=== PATIENT | male | born 1940 | race Caucasian/White ===

== ENCOUNTER 2021-04-17 10:15 | Outpatient (CLI) | payer SELFPAY | END 2021-04-17 10:16 | disposition EMS.NT | LOC: EMS 10:15 | DX: E16.2 Hypoglycemia, unspecified (principal) ==

== ENCOUNTER 2021-09-19 12:00 | Outpatient (CLI) | payer MEDICARE | END 2021-09-19 12:01 | disposition home or self-care (01) | LOC: LAB.S 12:00 | PROVIDERS: ATTEND Family Medicine | DX: Z51.81 Encounter for therapeutic drug level monitoring (principal); Z79.01 Long term (current) use of anticoagulants | CPT/HCPCS: 36416; 85610 ==

== ENCOUNTER 2021-10-26 14:07 | Outpatient (CLI) | payer MEDICARE | END 2021-10-26 14:08 | disposition home or self-care (01) | LOC: LAB.S 14:07 | PROVIDERS: ATTEND Family Medicine | DX: Z51.81 Encounter for therapeutic drug level monitoring (principal); Z79.01 Long term (current) use of anticoagulants | CPT/HCPCS: 36416; 85610 ==

== ENCOUNTER 2021-11-07 13:01 | Outpatient (CLI) | payer MEDICARE | END 2021-11-07 13:02 | disposition home or self-care (01) | LOC: LAB.S 13:01 | PROVIDERS: ATTEND Family Medicine | DX: Z51.81 Encounter for therapeutic drug level monitoring (principal); Z79.01 Long term (current) use of anticoagulants | CPT/HCPCS: 36416; 85610 ==

== ENCOUNTER 2021-12-14 13:24 | Outpatient (CLI) | payer MEDICARE | END 2021-12-14 13:25 | disposition home or self-care (01) | LOC: LAB.S 13:24 | PROVIDERS: ATTEND Family Medicine | DX: I48.91 Unspecified atrial fibrillation (principal) | CPT/HCPCS: 36416; 85610 ==

== ENCOUNTER 2022-01-12 10:39 | Outpatient (CLI) | payer MEDICARE | END 2022-01-12 10:40 | disposition home or self-care (01) | LOC: LAB.S 10:39 | PROVIDERS: ATTEND Family Medicine | DX: Z51.81 Encounter for therapeutic drug level monitoring (principal); Z79.01 Long term (current) use of anticoagulants | CPT/HCPCS: 36416; 85610 ==

== ENCOUNTER 2022-03-28 10:09 | Outpatient (CLI) | payer MEDICARE | END 2022-03-28 10:10 | disposition home or self-care (01) | LOC: LAB.S 10:09 | PROVIDERS: ATTEND Family Medicine | DX: Z51.81 Encounter for therapeutic drug level monitoring (principal); Z79.01 Long term (current) use of anticoagulants | CPT/HCPCS: 36416; 85610 ==

== ENCOUNTER 2022-04-27 13:36 | Outpatient (CLI) | payer MEDICARE | END 2022-04-27 13:37 | disposition home or self-care (01) | LOC: LAB.S 13:36 | PROVIDERS: ATTEND Family Medicine | DX: Z51.81 Encounter for therapeutic drug level monitoring (principal); Z79.01 Long term (current) use of anticoagulants | CPT/HCPCS: 36416; 85610 ==

== ENCOUNTER 2022-04-30 11:45 | Outpatient (CLI) | payer MEDICARE | END 2022-04-30 11:46 | disposition home or self-care (01) | LOC: LAB.S 11:45 | PROVIDERS: ATTEND Family Medicine | DX: Z51.81 Encounter for therapeutic drug level monitoring (principal); Z79.01 Long term (current) use of anticoagulants | CPT/HCPCS: 36416; 85610 ==

== ENCOUNTER 2022-05-14 14:20 | Outpatient (CLI) | payer MEDICARE | END 2022-05-14 14:21 | disposition home or self-care (01) | LOC: LAB.S 14:20 | PROVIDERS: ATTEND Family Medicine | DX: Z51.81 Encounter for therapeutic drug level monitoring (principal); Z79.01 Long term (current) use of anticoagulants | CPT/HCPCS: 36416; 85610 ==

== ENCOUNTER 2022-05-28 12:43 | Outpatient (CLI) | payer MEDICARE | END 2022-05-28 12:44 | disposition home or self-care (01) | LOC: LAB.S 12:43 | PROVIDERS: ATTEND Family Medicine | DX: Z51.81 Encounter for therapeutic drug level monitoring (principal); Z79.01 Long term (current) use of anticoagulants | CPT/HCPCS: 36416; 85610 ==

== ENCOUNTER 2022-06-11 11:47 | Outpatient (CLI) | payer MEDICARE | END 2022-06-11 11:48 | disposition home or self-care (01) | LOC: LAB.S 11:47 | PROVIDERS: ATTEND Family Medicine | DX: Z51.81 Encounter for therapeutic drug level monitoring (principal); Z79.01 Long term (current) use of anticoagulants | CPT/HCPCS: 36416; 85610 ==

== ENCOUNTER 2022-06-19 14:06 | Outpatient (CLI) | payer MEDICARE ==
[2022-06-19 20:19] LABS: HCT - HEMATOCRIT 36.9 % (42.0-52.0); HGB - HEMOGLOBIN 11.9 g/dL (14.0-18.0); MEAN CORPUSCULAR HEMOGLOBIN 28.5 pg (27.0-31.0); MEAN CORPUSCULAR HGB CONC 32.2 g/dL (32.0-36.0); MEAN CORPUSCULAR VOLUME 88.3 fL (80.0-94.0); MEAN PLATELET VOLUME 9.7 fL (7.4-11.4); RED BLOOD COUNT 4.18 10^6/uL (4.70-6.10); RED CELL DISTRIBUTION WIDTH 12.5 % (12.0-15.0)
[2022-06-19 20:42] LABS: CREATININE,URINE 123.8 mg/dL; MICROALBUM/CREATININE RATIO,UR 8.9 ug/mg (<30.0); MICROALBUMIN,URINE 1.1 mg/dL (0-300.0)
[2022-06-19 20:49] LABS: ALBUMIN 3.3 g/dL (3.2-5.5); ALBUMIN/GLOBULIN RATIO 0.8 (1.0-2.2); ALKALINE PHOSPHATASE 90 IU/L (42-121); ALT ALANINE AMINOTRANSFERASE 21 IU/L (10-60); AST ASPARTATE AMINOTRANSFERASE 24 IU/L (10-42); BILIRUBIN,TOTAL 0.4 mg/dL (0.2-1.0); BUN - BLOOD UREA NITROGEN 35 mg/dL (6-20); CALCIUM 8.9 mg/dL (8.5-10.3); CARBON DIOXIDE - CO2 28 mmol/L (21-32); CHLORIDE 100 mmol/L (101-111); CHOL/HDL RATIO 4.2 (<5.0); CHOLESTEROL 105 mg/dL; CREATININE 1.8 mg/dL (0.6-1.2); GFR - MDRD 36 (>89); GLUCOSE 105 mg/dL (70-100); HDL CHOLESTEROL 25 mg/dL; LDL CHOLESTEROL,CALCULATED 55 mg/dL; LDL/HDL RATIO 2.2 (<3.6); POTASSIUM 4.6 mmol/L (3.5-5.0); SODIUM 139 mmol/L (135-145); TOTAL PROTEIN 7.2 g/dL (6.7-8.2); TRIGLYCERIDES 125 mg/dL; VLDL CHOLESTEROL 25 mg/dL
[2022-06-19 21:30] LABS: ESTIMATED AVERAGE GLUCOSE 146 mg/dL (70-100); HEMOGLOBIN A1c% 6.7 % (4.27-6.07)
== END 2022-06-19 14:07 | disposition home or self-care (01) ==
LOC: LAB.S 14:06
PROVIDERS: ATTEND Family Medicine
DX: E11.22 Type 2 diabetes mellitus with diabetic chronic kidney disease (principal); N18.32 Chronic kidney disease, stage 3b; Z79.4 Long term (current) use of insulin
CPT/HCPCS: 36415; 80053; 80061; 82043; 82570; 83036; 83721; 85027

== ENCOUNTER 2022-07-21 09:48 | Outpatient (CLI) | payer MEDICARE | END 2022-07-21 09:49 | disposition EMS.NT | LOC: EMS 09:48 | DX: R42 Dizziness and giddiness (principal); R53.83 Other fatigue; S00.03XA Contusion of scalp, initial encounter; W00.0XXA Fall on same level due to ice and snow, initial encounter; Z79.01 Long term (current) use of anticoagulants ==

== ENCOUNTER 2022-07-23 11:36 | Outpatient (CLI) | payer MEDICARE | END 2022-07-23 11:37 | disposition home or self-care (01) | LOC: LAB.S 11:36 | PROVIDERS: ATTEND Family Medicine | DX: Z51.81 Encounter for therapeutic drug level monitoring (principal); Z79.01 Long term (current) use of anticoagulants | CPT/HCPCS: 36416; 85610 ==

== ENCOUNTER 2022-07-27 11:33 | Outpatient (CLI) | payer MEDICARE | END 2022-07-27 11:34 | disposition home or self-care (01) | LOC: LAB.S 11:33 | PROVIDERS: ATTEND Family Medicine | DX: Z51.81 Encounter for therapeutic drug level monitoring (principal); Z79.01 Long term (current) use of anticoagulants | CPT/HCPCS: 36416; 85610 ==

== ENCOUNTER 2022-08-22 12:12 | Outpatient (CLI) | payer MEDICARE | END 2022-08-22 12:13 | disposition home or self-care (01) | LOC: LAB.S 12:12 | PROVIDERS: ATTEND Family Medicine | DX: Z51.81 Encounter for therapeutic drug level monitoring (principal); Z79.01 Long term (current) use of anticoagulants | CPT/HCPCS: 36416; 85610 ==

== ENCOUNTER 2022-08-29 13:23 | Outpatient (CLI) | payer MEDICARE | END 2022-08-29 13:24 | disposition home or self-care (01) | LOC: LAB.S 13:23 | PROVIDERS: ATTEND Family Medicine | DX: Z51.81 Encounter for therapeutic drug level monitoring (principal); Z79.01 Long term (current) use of anticoagulants | CPT/HCPCS: 36416; 85610 ==

== ENCOUNTER 2022-09-06 12:34 | Outpatient (CLI) | payer MEDICARE | END 2022-09-06 12:35 | disposition home or self-care (01) | LOC: LAB.S 12:34 | PROVIDERS: ATTEND Family Medicine | DX: Z51.81 Encounter for therapeutic drug level monitoring (principal); Z79.01 Long term (current) use of anticoagulants | CPT/HCPCS: 36416; 85610 ==

== ENCOUNTER 2022-09-13 03:34 | Outpatient (CLI) | payer MEDICARE | END 2022-09-13 03:35 | disposition critical access hospital (66) | LOC: EMS 03:34 | DX: R07.1 Chest pain on breathing (principal) | CPT/HCPCS: A0425; A0427 ==

== ENCOUNTER 2022-09-13 03:58 | Emergency (ER) | payer MEDICARE ==
--- NOTE | 2022-09-13 04:00 | ED Physician Documentation ---
PD HPI CHEST PAIN - Stated complaint Stated Complaint: CHEST PX - History obtained from History obtained from: Patient, EMS - History of Present Illness Timing - details: Abrupt onset Quality: Sharp Recently seen: Not recently seen - Additional information Additional information: HPI is from patient with some contribution from EMS report. Patient is brought in by ambulance with a chief complaint of pain across his lower anterior chest. The symptoms were of sudden onset at 3 AM this morning waking him from sleep. Patient took 4 baby aspirin (81 mg each for total of 324 mg), and noted improvement after taking this. He then had complete resolution when EMS administered 1 dose of sublingual nitroglycerin. Patient denies shortness of breath on presentation, but says he did have some mild shortness of breath when the pain was at its most pronounced. He does note that there was a mild degree of pleuritic component when he had the pain. He denies history of similar symptoms. Patient's past medical history includes cardiac stent which was placed in 2017. Patient's medications include warfarin; patient does not recall why he is on this mediation. I ask him if he has had a history of blood clots in his legs or his lungs, and he says he does not recall having such a problem. I ask him if he has a history of irregular heart rhythm, atrial fibrillation, "A-fib", and, again, he says these are not familiar diagnoses to him. Review of Systems Constitutional: denies: Fever, Chills, Sweats Cardiac: reports: Chest pain / pressure. denies: Palpitations, Pedal edema, Calf pain Respiratory: reports: Dyspnea. denies: Cough GI: reports: Reviewed and negative PD PAST MEDICAL HISTORY - Past Medical History Past Medical History: Yes Cardiovascular: Hypertension, Coronary artery disease - Past Surgical History Past Surgical History: Yes Cardiovascular: Coronary stent - Present Medications Home Medications: Ambulatory Orders Medication Instructions Recorded Confirmed Aspirin Chewable [[place] 81 mg PO DAILY 09/13/22 09/13/22 Aspirin] Atorvastatin Calcium [Lipitor] 80 mg PO DAILY 09/13/22 09/13/22 Azithromycin [Zithromax] 250 mg PO DAILY #6 tablet 09/13/22 Cefdinir 300 mg PO BID #20 cap 09/13/22 Fluoxetine HCl [Prozac] 40 mg PO BID 09/13/22 09/13/22 Furosemide [Lasix] 20 mg PO QPM 09/13/22 09/13/22 Metoprolol Succinate [Toprol Xl] 25 mg PO DAILY 09/13/22 09/13/22 Omeprazole Magnesium 20 mg PO BID 09/13/22 09/13/22 Warfarin [Coumadin] 2.5 mg PO DAILY 09/13/22 09/13/22 - Allergies Allergies/Adverse Reactions: Allergies Allergy/AdvReac Type Severity Reaction Status Date / Time No Known Drug Allergies Allergy Verified 09/13/22 04:24 PD ED PE NORMAL - Vitals Vital signs reviewed: Yes - General General: Alert and oriented X 3, No acute distress, Well developed/nourished - HEENT HEENT: Moist mucous membranes - Neck Neck: Supple, no meningeal sign - Cardiac Cardiac: RRR, No murmur, No gallop, No rub - Respiratory Respiratory: No respiratory distress, Clear bilaterally - Abdomen Abdomen: Soft, Non tender, Non distended - Derm Derm: Normal color, Warm and dry - Extremities Extremities: No edema - Neuro Neuro: Alert and oriented X 3 Results - Vitals Vitals: Oxygen O2 Source Room air - EKG (time done) No standard instances Rate: Rate (enter#) (70) Rhythm: NSR Intervals: LBBB - Labs Labs: Laboratory Tests 09/13/22 09/13/22 09/13/22 04:14 04:14 04:14 WBC 9.1 RBC 3.72 L Hgb 10.3 L Hct 33.6 L MCV 90.3 MCH 27.7 MCHC 30.7 L RDW 15.1 H Plt Count 178 MPV 9.9 Neut # (Auto) 6.9 H Lymph # (Auto) 0.8 L Aurora # (Auto) 1.0 Eos # (Auto) 0.4 Baso # (Auto) 0.0 Absolute Nucleated RBC 0.00 Nucleated RBC % 0.0 PT 18.7 H INR 1.7 H APTT 35.8 H Sodium 138 Potassium 4.3 Chloride 102 Carbon Dioxide 25 Anion Gap 11.0 BUN 37 H Creatinine 1.8 H Estimated GFR (MDRD) 36 L Glucose 173 H Calcium 8.5 Total Bilirubin 0.6 AST 23 ALT 20 Alkaline Phosphatase 65 Troponin I High Sens Total Protein 7.0 Albumin 3.4 Globulin 3.6 Albumin/Globulin Ratio 0.9 L Lipase 24 Nasal Adenovirus (PCR) Nasal B. parapertussis DNA (PCR) Nasal Coronavir 229E PCR Nasal Coronavir HKU1 PCR Nasal Coronavir NL63 PCR Nasal Coronavir OC43 PCR Nasal Enterovir/Rhinovir PCR Nasal Influenza B PCR Nasal Influenza A PCR Nasal Parainfluen 1 PCR Nasal Parainfluen 2 PCR Nasal Parainfluen 3 PCR Nasal Parainfluen 4 PCR Nasal RSV (PCR) Nasal B.pertussis DNA PCR Nasal C.pneumoniae (PCR) Dion Human Metapneumo PCR Nasal M.pneumoniae (PCR) Nasal SARS-CoV-2 (PCR) 09/13/22 09/13/22 09/13/22 04:14 09:13 09:35 WBC RBC Hgb Hct MCV MCH MCHC RDW Plt Count MPV Neut # (Auto) Lymph # (Auto) Aurora # (Auto) Eos # (Auto) Baso # (Auto) Absolute Nucleated RBC Nucleated RBC % PT INR APTT Sodium Potassium Chloride Carbon Dioxide Anion Gap BUN Creatinine Estimated GFR (MDRD) Glucose Calcium Total Bilirubin AST ALT Alkaline Phosphatase Troponin I High Sens 9.2 8.1 Total Protein Albumin Globulin Albumin/Globulin Ratio Lipase Nasal Adenovirus (PCR) NOT DETECTED Nasal B. parapertussis DNA (PCR) NOT DETECTED Nasal Coronavir 229E PCR NOT DETECTED Nasal Coronavir HKU1 PCR NOT DETECTED Nasal Coronavir NL63 PCR NOT DETECTED Nasal Coronavir OC43 PCR NOT DETECTED Nasal Enterovir/Rhinovir PCR NOT DETECTED Nasal Influenza B PCR NOT DETECTED Nasal Influenza A PCR NOT DETECTED Nasal Parainfluen 1 PCR NOT DETECTED Nasal Parainfluen 2 PCR NOT DETECTED Nasal Parainfluen 3 PCR NOT DETECTED Nasal Parainfluen 4 PCR NOT DETECTED Nasal RSV (PCR) NOT DETECTED Nasal B.pertussis DNA PCR NOT DETECTED Nasal C.pneumoniae (PCR) NOT DETECTED Dion Human Metapneumo PCR NOT DETECTED Nasal M.pneumoniae (PCR) NOT DETECTED Nasal SARS-CoV-2 (PCR) NOT DETECTED - Rads (name of study) chest xray Radiology: Prelim report reviewed, See rad report PD Medical Decision Making - ED course Complexity details: reviewed results, re-evaluated patient, considered differential, d/w patient ED course: Patient is brought in by ambulance for chest pain that resolved prior to arrival (patient took 324 mg of aspirin and had significant improvement with this, and subsequent resolution after 1 sublingual nitroglycerin administered by EMS). There are no concerning findings on the CBC (mild anemia with hemoglobin of 10.3 is noted), your abdominal panel. High-sensitivity troponin is within a normal range. Chest x-ray shows mild left lower lobe atelectasis. Patient is on warfarin, INR is 1.7. Patient indicates to me that the target therapeutic range that he was told is 2.5. His EKG shows a left bundle branch block and appears to be a sinus rhythm with PACs, although I also note occasional irregularly irregular appearance during cardiac monitoring in the ER, and thus I suspect the warfarin is most likely due to chronic/paroxysmal atrial fibrillation. On reevaluation, I discussed the test results with the patient. Unfortunately, at the time of the reevaluation, he is reporting his pain has returned. Thus, a repeat troponin is ordered, and CTA of the chest is also ordered given the pleuritic component of his chest discomfort). The reevaluation and these tests occurred at the end of my shift, and thus the care of this patient is turned over to the oncoming emergency department physician (Dr. Tyler) pending the results and subsequent reevaluation. Departure - Departure Disposition: 01 Home, Self Care Clinical Impression: Chest pain Qualifiers: Chest pain type: chest pain on breathing Qualified Code(s): R07.1 - Chest pain on breathing Pneumonia Qualifiers: Pneumonia type: due to unspecified organism Laterality: left Lung location: lower lobe of lung Qualified Code(s): J18.9 - Pneumonia, unspecified organism Condition: Stable Instructions: ED Chest Pain Pleurisy, ED Pneumonia Adult Follow-Up: Aleksandr Vicente MD [Physician No Access] - Prescriptions: Cefdinir 300 mg PO BID #20 cap Azithromycin [Zithromax] 250 mg PO DAILY #6 tablet Comments: Tin, today it looks like your pain in your chest is related to a pneumonia. I have E scribed the antibiotics to the [facility] in [place]. The medications were given today are good for 24 hours and you will not need to take these medicines today. duplex trimmer the medication at the pharmacy and begin it tomorrow. Because you are on antibiotic you will need to have your INR rechecked in about 3 to 5 days. For the pain take the oxycodone you have at home. Discharge Date/Time: 09/13/22 13:42
[2022-09-13] MEDS ORDERED: SODIUM CHLORIDE 0.9% 1,000 ML IV STA (04:10)
[2022-09-13 04:24] LABS: BASOPHILS % (AUTO) 0.2 %; EOSINOPHILS # (AUTO) 0.4 10^3/uL (0.0-0.7); EOSINOPHILS % (AUTO) 4.3 %; HCT - HEMATOCRIT 33.6 % (42.0-52.0); HGB - HEMOGLOBIN 10.3 g/dL (14.0-18.0); LYMPHOCYTES # (AUTO) 0.8 10^3/uL (1.5-3.5); LYMPHOCYTES % (AUTO) 8.8 %; MEAN CORPUSCULAR HEMOGLOBIN 27.7 pg (27.0-31.0); MEAN CORPUSCULAR HGB CONC 30.7 g/dL (32.0-36.0); MEAN CORPUSCULAR VOLUME 90.3 fL (80.0-94.0); MEAN PLATELET VOLUME 9.9 fL (7.4-11.4); MONOCYTES % (AUTO) 10.5 %; NEUTROPHILS # (AUTO) 6.9 10^3/uL (1.5-6.6); NEUTROPHILS % (AUTO) 76.1 %; PLT - PLATELET COUNT 178 10^3/uL (130-450); RED BLOOD COUNT 3.72 10^6/uL (4.70-6.10); RED CELL DISTRIBUTION WIDTH 15.1 % (12.0-15.0); WHITE BLOOD COUNT 9.1 x10^3/uL (4.8-10.8)
[2022-09-13 04:30] LABS: INR 1.7 (0.8-1.2); PT - PROTHROMBIN TIME 18.7 secs (9.9-12.6)
[2022-09-13 04:37] LABS: PARTIAL THROMBOPLASTIN TIME 35.8 secs (24.9-33.3)
[2022-09-13 04:38] LABS: ALBUMIN 3.4 g/dL (3.2-5.5); ALBUMIN/GLOBULIN RATIO 0.9 (1.0-2.2); BILIRUBIN,TOTAL 0.6 mg/dL (0.2-1.0); CALCIUM 8.5 mg/dL (8.5-10.3); CREATININE 1.8 mg/dL (0.6-1.2); POTASSIUM 4.3 mmol/L (3.5-5.0)
[2022-09-13] MEDS ORDERED: SODIUM CHLORIDE 0.9% 500 ML IV STA (08:14)
[2022-09-13] MEDS ORDERED: iohexoL-300 100 ML VIAL ONE (08:22)
--- NOTE | 2022-09-13 08:46 | XRAY Report ---
PROCEDURE: Chest 2 View X-Ray INDICATIONS: chest pain TECHNIQUE: 2 views of the chest were acquired. COMPARISON: None. FINDINGS: Surgical changes and devices: None. Lungs and pleura: No pleural effusions or pneumothorax. Left lower lobe opacities probably atelectas is. Mediastinum: Mediastinal contours are normal. Heart size is normal. Bones and chest wall: No suspicious bony abnormalities. Soft tissues appear unremarkable. IMPRESSION: Left lower lobe atelectasis. No significant discrepancy with the preliminary interpretation. Reviewed by: Noni Montes MD on 09/13/2022 8:45 AM PST Approved by: Noni Montes MD on 09/13/2022 8:45 AM [facility] Station ID: [id number]
[2022-09-13] MEDS ORDERED: DEXAMETHASONE 10 MG/ML VIAL IVP STA (08:56)
--- NOTE | 2022-09-13 08:57 | CT Report ---
PROCEDURE: ANGIO CHEST W/WO INDICATIONS: pleuritic chest pain CONTRAST: 80ml Omnipaque 300 TECHNIQUE: After the administration of intravenous contrast, 2 mm axial images were acquired from the pulmonary apices to the posterior costophrenic angles during the arterial phase. In addition, 1 mm lung kernel and 5 mm soft tissue kernel reconstructions were performed. 3-dimensional coronal oblique maximum int ensity projection (MIP) reformats, 8 mm axial MIP, and 5 mm coronal and sagittal MPR reformats were t hen performed through the thorax. For radiation dose reduction, the following was used: automated exp osure control, adjustment of mA and/or kV according to patient size. COMPARISON: 09/13/2022 chest x-ray FINDINGS: Image quality: Excellent. Pulmonary arteries: Pulmonary arteries are normal in size, and demonstrate no intraluminal filling d efects to suggest central pulmonary embolism. Lungs and pleura: There is a 3 mm subpleural nodule within the anterior inferior aspect of the right upper lobe (series 7 image 122). There is a spiculated 13 mm nodule within the right posterior costop hrenic angle. Mild dependent scarring within the bilateral lung bases posteriorly. There is mild patc hy airspace and reticular nodular opacity within the inferolateral aspect of the lingula. No pleural effusions or pneumothorax. Central and peripheral airways are patent. Mediastinum: Heart size is normal, without pericardial effusion. Severe calcification of the coronar y vasculature. No mediastinal or hilar adenopathy. Thoracic aorta is normal in caliber and enhancem ent. Esophagus is normal in caliber, without hiatal hernia. Bones and chest wall: No suspicious bony lesions. Ribs and thoracic spine appear intact throughout. No axillary or supraclavicular adenopathy. The thyroid is normal in size and there are no incident al findings. Abdomen: Visualized portions of the upper abdomen demonstrate a small amount of layering high densit y material within the gallbladder lumen, as well as several hepatic cysts within the right and left h epatic lobes. IMPRESSION: 1. No pulmonary embolus. 2. Lingular pneumonia. Follow-up chest CT in 3 months is recommended to ensure resolution, and to exc lude underlying latency. 3. Right upper and lower lobe pulmonary nodules as described above. Follow-up is recommended as below . 4. Coronary artery disease. 5. Findings suggestive of cholelithiasis. Solid nodules Solitary nodule size: <6 mm *low risk patients: no follow-up needed *high risk patients: optional CT at 12 months Solitary nodule size: 6-8 mm *low risk patients: follow-up at 6-12 months, then consider further follow-up at 18-24 months *high risk patients: initial follow-up CT at 6-12 months and then at 18-24 months if no change Solitary nodule size: >8 mm *either low or high risk patients *consider follow-up CT at 3 months, and/or CT-PET, and/or biopsy Multiple nodules size: <6 mm *low risk patients: no routine follow-up *high risk patients: optional CT at 12 months Multiple nodules size: 6-8 mm *low risk patients: follow-up at 3-6 months, then consider further follow-up at 18-24 months *high risk patients: follow-up at 3-6 months, then at 18-24 months if no change Multiple nodules size: >8 mm *low risk patients: follow-up at 3-6 months, then consider further follow-up at 18-24 months *high risk patients: follow-up at 3-6 months, then at 18-24 months if no change Reviewed by: Carolina Burns MD on 09/13/2022 8:56 AM PST Approved by: Carolina Burns MD on 09/13/2022 8:56 AM PST Station ID: [id number]
[2022-09-13] MEDS ORDERED: MORPHINE 2 MG/ML CARPUJECT IVP STA (09:03)
[2022-09-13] MEDS ORDERED: iohexoL-300 100 ML VIAL IVP ONE (09:28)
[2022-09-13 10:20] LABS: B. PARAPERTUSSIS- RESP PCR PAN NOT DETECTED; B. PERTUSSIS- RESP PCR PANEL NOT DETECTED; C. PNEUMONIAE- RESP PCR PANEL NOT DETECTED; CORONAVIRUS 229E-RESP PCR NOT DETECTED; CORONAVIRUS HKU1-RESP PCR NOT DETECTED; CORONAVIRUS NL63-RESP PCR NOT DETECTED; CORONAVIRUS OC43-RESP PCR NOT DETECTED; HUMAN METAPNEUMOVIRUS NOT DETECTED; INFLUENZA A- RESP PCR PANEL NOT DETECTED; INFLUENZA B - RESP PCR PANEL NOT DETECTED; M. PNEUMONIAE- RESP PCR PANEL NOT DETECTED; PARAINFLUENZA VIRUS 1 NOT DETECTED; PARAINFLUENZA VIRUS 2 NOT DETECTED; PARAINFLUENZA VIRUS 3 NOT DETECTED; PARAINFLUENZA VIRUS 4 NOT DETECTED; RHINOVIRUS/ENTEROVIRUS NOT DETECTED; RSV- RESP PCR PANEL NOT DETECTED; SARS-CoV-2 -RESP PCR PANEL NOT DETECTED
[2022-09-13] MEDS ORDERED: cefTRIAXone 1 GM in SODIUM CHLORIDE 0.9% MINIBAG 100 ML IV STA (10:29)
[2022-09-13] MEDS ORDERED: AZITHROMYCIN INJ 500 MG in SODIUM CHLORIDE 0.9% 250 ML IV STA (10:29)
[2022-09-13] MEDS ORDERED: HYDROcod/ACETAM 5/325 MG TABLET PO STA (11:09)
[2022-09-13 12:40] VITALS: BP 105/52
--- NOTE | 2022-09-13 13:29 | ED Physician Documentation ---
ED Addendum - Addendum Addendum: 09/13/22 16:08 Tin Fernandez is an 82-year-old male with history of atrial fibrillation who is on Coumadin who has developed a cough congestion and shortness of breath as well as chest pain. He was seen by Dr. Guidry worked up for his chest pain and in the work-up it was discovered he has an infiltrate in the left lingular area likely the cause of the patient's chest pain. He did rule out for myocardial infarction in the emergency department with 2 negative troponins and an unch anged electrocardiogram. Here in the emergency department treatment for pneumonia is begun with intravenous Rocephin and azithromycin. Impression: pneumonia Plan: azithromycin and ceftin (pharmacist called and they were out of cefdinir) 09/13/22 16:11
== END 2022-09-13 13:42 | disposition home or self-care (01) ==
LOC: EDUNIT# → ED 03:58
DX: R07.1 Chest pain on breathing (principal); J18.9 Pneumonia, unspecified organism; Z95.5 Presence of coronary angioplasty implant and graft; I10 Essential (primary) hypertension; I48.91 Unspecified atrial fibrillation; Z79.01 Long term (current) use of anticoagulants
CPT/HCPCS: 36415; 71046; 71275; 80053; 83690; 84484; 85025; 85610; 85730; 87633; 93005; 96361; 96365; 96367; 96375; 99284; 99285; A9270; Q9967

== ENCOUNTER 2022-09-20 14:39 | Outpatient (CLI) | payer MEDICARE | END 2022-09-20 14:40 | disposition home or self-care (01) | LOC: LAB.S 14:39 | PROVIDERS: ATTEND Family Medicine | DX: Z51.81 Encounter for therapeutic drug level monitoring (principal); Z79.01 Long term (current) use of anticoagulants | CPT/HCPCS: 36416; 85610 ==

== ENCOUNTER 2022-10-01 11:58 | Outpatient (CLI) | payer MEDICARE | END 2022-10-01 11:59 | disposition home or self-care (01) | LOC: LAB.S 11:58 | PROVIDERS: ATTEND Family Medicine | DX: Z51.81 Encounter for therapeutic drug level monitoring (principal); Z79.01 Long term (current) use of anticoagulants | CPT/HCPCS: 36416; 85610 ==

== ENCOUNTER 2022-10-16 11:27 | Outpatient (CLI) | payer MEDICARE | END 2022-10-16 11:28 | disposition home or self-care (01) | LOC: LAB.S 11:27 | PROVIDERS: ATTEND Family Medicine | DX: Z51.81 Encounter for therapeutic drug level monitoring (principal); Z79.01 Long term (current) use of anticoagulants | CPT/HCPCS: 36416; 85610 ==

== ENCOUNTER 2022-10-30 10:33 | Outpatient (CLI) | payer MEDICARE | END 2022-10-30 10:34 | disposition home or self-care (01) | LOC: LAB.S 10:33 | PROVIDERS: ATTEND Family Medicine | DX: Z51.81 Encounter for therapeutic drug level monitoring (principal); Z79.01 Long term (current) use of anticoagulants | CPT/HCPCS: 36416; 85610 ==

== ENCOUNTER 2022-11-05 11:57 | Outpatient (CLI) | payer MEDICARE | END 2022-11-05 11:58 | disposition home or self-care (01) | LOC: LAB.S 11:57 | PROVIDERS: ATTEND Family Medicine | DX: Z51.81 Encounter for therapeutic drug level monitoring (principal); Z79.01 Long term (current) use of anticoagulants | CPT/HCPCS: 36416; 85610 ==

== ENCOUNTER 2022-11-16 11:56 | Outpatient (CLI) | payer MEDICARE | END 2022-11-16 11:57 | disposition home or self-care (01) | LOC: LAB.S 11:56 | PROVIDERS: ATTEND Family Medicine | DX: Z51.81 Encounter for therapeutic drug level monitoring (principal); Z79.01 Long term (current) use of anticoagulants | CPT/HCPCS: 36416; 85610 ==

== ENCOUNTER 2022-11-30 12:13 | Outpatient (CLI) | payer MEDICARE | END 2022-11-30 12:14 | disposition home or self-care (01) | LOC: LAB.S 12:13 | PROVIDERS: ATTEND Family Medicine | DX: Z51.81 Encounter for therapeutic drug level monitoring (principal); Z79.01 Long term (current) use of anticoagulants | CPT/HCPCS: 36416; 85610 ==

== ENCOUNTER 2022-12-06 12:34 | Outpatient (CLI) | payer MEDICARE | END 2022-12-06 12:35 | disposition home or self-care (01) | LOC: LAB.S 12:34 | PROVIDERS: ATTEND Family Medicine | DX: Z51.81 Encounter for therapeutic drug level monitoring (principal); Z79.01 Long term (current) use of anticoagulants | CPT/HCPCS: 36416; 85610 ==

== ENCOUNTER 2022-12-13 13:00 | Outpatient (CLI) | payer MEDICARE | END 2022-12-13 13:01 | disposition home or self-care (01) | LOC: LAB.S 13:00 | PROVIDERS: ATTEND Family Medicine | DX: Z51.81 Encounter for therapeutic drug level monitoring (principal); Z79.01 Long term (current) use of anticoagulants | CPT/HCPCS: 36416; 85610 ==

== ENCOUNTER 2022-12-21 09:56 | Outpatient (CLI) | payer MEDICARE | END 2022-12-21 09:57 | disposition home or self-care (01) | LOC: LAB.S 09:56 | PROVIDERS: ATTEND Family Medicine | DX: Z51.81 Encounter for therapeutic drug level monitoring (principal); Z79.01 Long term (current) use of anticoagulants | CPT/HCPCS: 36416; 85610 ==

== ENCOUNTER 2023-01-10 14:48 | Outpatient (CLI) | payer MEDICARE | END 2023-01-10 14:49 | disposition home or self-care (01) | LOC: LAB.S 14:48 | PROVIDERS: ATTEND Family Medicine | DX: Z51.81 Encounter for therapeutic drug level monitoring (principal); Z79.01 Long term (current) use of anticoagulants | CPT/HCPCS: 36416; 85610 ==

== ENCOUNTER 2023-02-08 12:42 | Outpatient (CLI) | payer MEDICARE | END 2023-02-08 12:43 | disposition home or self-care (01) | LOC: LAB.S 12:42 | PROVIDERS: ATTEND Family Medicine | DX: Z51.81 Encounter for therapeutic drug level monitoring (principal); Z79.01 Long term (current) use of anticoagulants | CPT/HCPCS: 36416; 85610 ==

== ENCOUNTER 2023-03-01 11:48 | Outpatient (CLI) | payer MEDICARE | END 2023-03-01 11:49 | disposition home or self-care (01) | LOC: LAB.S 11:48 | PROVIDERS: ATTEND Family Medicine | DX: Z51.81 Encounter for therapeutic drug level monitoring (principal); Z79.01 Long term (current) use of anticoagulants | CPT/HCPCS: 36416; 85610 ==

== ENCOUNTER 2023-03-18 12:02 | Outpatient (CLI) | payer MEDICARE | END 2023-03-18 12:03 | disposition home or self-care (01) | LOC: LAB.S 12:02 | PROVIDERS: ATTEND Family Medicine | DX: Z51.81 Encounter for therapeutic drug level monitoring (principal); Z79.01 Long term (current) use of anticoagulants | CPT/HCPCS: 36416; 85610 ==

== ENCOUNTER 2023-03-25 13:52 | Outpatient (CLI) | payer MEDICARE | END 2023-03-25 13:53 | disposition home or self-care (01) | LOC: LAB.S 13:52 | PROVIDERS: ATTEND Family Medicine | DX: Z51.81 Encounter for therapeutic drug level monitoring (principal); Z79.01 Long term (current) use of anticoagulants | CPT/HCPCS: 36416; 85610 ==

== ENCOUNTER 2023-04-03 14:26 | Outpatient (CLI) | payer MEDICARE | END 2023-04-03 14:27 | disposition home or self-care (01) | LOC: LAB.S 14:26 | PROVIDERS: ATTEND Family Medicine | DX: Z79.01 Long term (current) use of anticoagulants (principal); Z51.81 Encounter for therapeutic drug level monitoring | CPT/HCPCS: 36416; 85610 ==

== ENCOUNTER 2023-12-25 08:00 | Outpatient (CLI) | payer MEDICARE ==
--- NOTE | 2023-12-25 22:38 | XRAY Report ---
PROCEDURE: Wrist 3+V LT INDICATIONS: PAIN IN LEFT WRIST TECHNIQUE: 3 views of the wrist were acquired. COMPARISON: None. FINDINGS: Bones: No fractures or dislocations. 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 No suspi cious bony lesions. Ulnar minus variance. Soft tissues: No suspicious soft tissue calcifications or masses. 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 Arteriovascular calcifications. IMPRESSION: No acute bony abnormality. 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 Reviewed by: Mason Mauricio MD on 12/25/2023 10:37 PM PDT Approved by: Mason Mauricio MD on 12/25/2023 10:37 PM PDT Station ID: [id number]
== END 2023-12-25 23:59 | disposition home or self-care (01) ==
LOC: DI.S 08:00
PROVIDERS: ATTEND Registered Nurse
DX: M18.12 Unilateral primary osteoarthritis of first carpometacarpal joint, left hand (principal)

== ENCOUNTER 2024-01-26 08:32 | Outpatient (CLI) | payer MEDICARE | END 2024-01-26 23:59 | disposition EMS.NT | LOC: EMS 08:32 | DX: E10.649 Type 1 diabetes mellitus with hypoglycemia without coma (principal) ==